=== PATIENT | female | born 1965 | race African-American/Black ===

== ENCOUNTER 2017-04-22 20:22 | Emergency (ER) | payer OTHER ==
[~2017-04-22] VITALS: Ht 165.1 cm; Wt 101.2 kg
[~2017-04-22 20:22] MED LIST: ADULT LOW DOSE81 MG PO; APIDRA SC; FLEXERIL PO; IBUPROFEN 800800 M1 PO; LANTUS SC; LIDODERM 5%1 PATCH TOP; MICARDIS40 MG PO; NAPROSYN500 MG PO; NEURONTIN 300M300 M2 PO; NORCO 5-325 TA1 EACH PO; NOVOLOG100 UNIT/1; PAMELOR25 MG PO; VYTORIN
[2017-04-22] MEDS ORDERED: VYTORIN 10-401 EACH PO (20:52)
[2017-04-22] MEDS ORDERED: OXYCODONE HCL15 MG PO (20:52)
[2017-04-22] MEDS ORDERED: NORVASC5 MG PO (20:52)
[2017-04-22] MEDS ORDERED: TRAZODONE HCL50 MG PO (20:53)
[2017-04-22] MEDS ORDERED: CELEXA20 MG PO (20:53)
[2017-04-22] MEDS ORDERED: RISPERIDONE2 MG PO (20:54)
[2017-04-22] MEDS ORDERED: NOVOLOG FL100 UNIT/M SC (20:54)
[2017-04-22] MEDS ORDERED: OLMESARTAN-HCT1 EAC2 PO (20:54)
[2017-04-22] MEDS ORDERED: IBUPROFEN 800800 M1 PO (21:53)
[2017-04-22] MEDS ORDERED: FLEXERIL PO (21:57)
[2017-04-22 22:28] VITALS: BP 182/82
== END 2017-04-22 22:30 | disposition home or self-care (01) ==
LOC: ER 20:22
DX: S16.1XXA Strain of muscle, fascia and tendon at neck level, initial encounter (principal); M54.12 Radiculopathy, cervical region; I10 Essential (primary) hypertension; J45.909 Unspecified asthma, uncomplicated; E11.9 Type 2 diabetes mellitus without complications; V43.52XA Car driver injured in collision with other type car in traffic accident, initial encounter; Y93.89 Activity, other specified; Y92.89 Other specified places as the place of occurrence of the external cause; Y99.8 Other external cause status

== ENCOUNTER → 2018-12-19 | Outpatient (CLI) | payer OTHER ==
[~2018-12-19] MED LIST changes: +CELEXA20 MG PO; +NORVASC5 MG PO; +NOVOLOG FL100 UNIT/M SC; +OLMESARTAN-HCT1 EAC2 PO; +OXYCODONE HCL15 MG PO; +RISPERIDONE2 MG PO; +TRAZODONE HCL50 MG PO; +VYTORIN 10-401 EACH PO
== END ==
LOC: CAT 12:54
DX: M47.816 Spondylosis without myelopathy or radiculopathy, lumbar region (principal); M48.8X7 Other specified spondylopathies, lumbosacral region; M43.27 Fusion of spine, lumbosacral region